=== PATIENT | female | born 1975 | race African-American/Black ===

== ENCOUNTER 2017-07-12 05:45 | Emergency (ER) | payer SELFPAY | END 2017-07-12 07:00 | disposition left against medical advice (07) | LOC: ER 05:45 | DX: Z53.21 Procedure and treatment not carried out due to patient leaving prior to being seen by health care provider (principal) ==

== ENCOUNTER → 2017-07-12 | Emergency (ER) | payer SELFPAY ==
[~2017-07-12] VITALS: Ht 157.5 cm; Wt 49.0 kg
[~2017-07-12] MED LIST: ACETAMINOPHEN 325MG TABLET PO ONE
[2017-07-12 07:28] VITALS: BP 108/74
== END | disposition home or self-care (01) ==
LOC: ER 07:49
DX: Z53.21 Procedure and treatment not carried out due to patient leaving prior to being seen by health care provider (principal)